=== PATIENT | female | born 1940 | race Two or more races ===

== ENCOUNTER 2022-11-10 02:00 | Emergency (ER) | payer SELFPAY ==
[~2022-11-10] VITALS: Ht 157.5 cm; Wt 57.0 kg
[2022-11-10] MEDS ORDERED: HYDROcodone-ACET 5/325MG TAB PO ONE (04:45)
[2022-11-10] MEDS ORDERED: ONDANSETRON ODT 4 MG TAB PO ONE (04:45)
[2022-11-10] MEDS ORDERED: NAP500T PO (04:48)
[2022-11-10 06:34] VITALS: BP 185/89
== END 2022-11-10 06:33 | disposition home or self-care (01) ==
LOC: EDBD 02:00 → ER 02:05
DX: S22.9XXA Fracture of bony thorax, part unspecified, initial encounter for closed fracture (principal); E11.9 Type 2 diabetes mellitus without complications; I10 Essential (primary) hypertension; Z90.49 Acquired absence of other specified parts of digestive tract; V47.6XXA Car passenger injured in collision with fixed or stationary object in traffic accident, initial encounter; Y93.89 Activity, other specified; Y92.89 Other specified places as the place of occurrence of the external cause; Y99.8 Other external cause status
CPT/HCPCS: 70450; 72125; 72128; 72131; 99284; Q0162